=== PATIENT | female | born 1945 | race Hispanic/Latino ===

== ENCOUNTER 2020-07-03 08:41 | Outpatient (CLI) | payer MEDICARE | END 2020-07-03 08:42 | disposition home or self-care (01) | LOC: CSHCT 08:41 | PROVIDERS: ATTEND Internal Medicine Hematology & Oncology | DX: C50.412 Malignant neoplasm of upper-outer quadrant of left female breast (principal); N88.9 Noninflammatory disorder of cervix uteri, unspecified; N28.9 Disorder of kidney and ureter, unspecified; K76.9 Liver disease, unspecified | CPT/HCPCS: 71260; 74177; 78306; A9503 ==

== ENCOUNTER 2020-10-08 08:49 | Outpatient (CLI) | payer MEDICARE | END 2020-10-08 08:50 | disposition home or self-care (01) | LOC: CSHNM 08:49 | PROVIDERS: ATTEND Internal Medicine Hematology & Oncology | DX: C50.412 Malignant neoplasm of upper-outer quadrant of left female breast (principal); N85.8 Other specified noninflammatory disorders of uterus | CPT/HCPCS: 71260; 74177; 78306; 82565; A9503 ==

== ENCOUNTER 2020-12-31 08:44 | Outpatient (CLI) | payer MEDICARE | END 2020-12-31 08:45 | disposition home or self-care (01) | LOC: CSHCT 08:44 | PROVIDERS: ATTEND Internal Medicine Hematology & Oncology | DX: C50.412 Malignant neoplasm of upper-outer quadrant of left female breast (principal); R19.00 Intra-abdominal and pelvic swelling, mass and lump, unspecified site; N85.9 Noninflammatory disorder of uterus, unspecified | CPT/HCPCS: 71260; 74177; 82565 ==

== ENCOUNTER 2021-07-21 09:13 | Outpatient (CLI) | payer MEDICARE ==
[2021-07-21] MEDS ORDERED: Iopamidol 300 61% 100 ML VIAL FS ONE (10:15)
== END 2021-07-21 09:14 | disposition home or self-care (01) ==
LOC: CSHCT 09:13
PROVIDERS: ATTEND Internal Medicine Hematology & Oncology
DX: C50.412 Malignant neoplasm of upper-outer quadrant of left female breast (principal)
CPT/HCPCS: 71260; 74177

== ENCOUNTER 2022-04-19 09:38 | Outpatient (CLI) | payer MEDICARE ==
[2022-04-19] MEDS ORDERED: Iopamidol 300 61% 100 ML VIAL FS ONE (09:54)
== END 2022-04-19 09:39 | disposition home or self-care (01) ==
LOC: CSHCT 09:38
PROVIDERS: ATTEND Internal Medicine Hematology & Oncology
DX: C50.919 Malignant neoplasm of unspecified site of unspecified female breast (principal)
CPT/HCPCS: 71260; 74177